=== PATIENT | male | born 1940 | race Caucasian/White ===

== ENCOUNTER 2021-09-18 16:28 | Emergency (ER) | payer MEDICARE, BC ==
[2021-09-18 16:46] VITALS: BP 129/81; PULSE 69; O2SAT 96
--- NOTE | 2021-09-18 16:49 | ERPHSYRPT ---
- History of Present Illness Time Seen by Provider: 09/18/21 16:46 Source: patient Exam Limitations: no limitations Physician History: Patient is 81-year-old male had a hand laceration on the right hand yesterday which for which he got approximately 10 stitches. Patient is on blood thinners for today his hand got more bruised so he came to the emergency room to get checked out. His wound was checked and it appears to be intact no other problems noted except for some bruise around his hand patient denies any other symptoms. Timing/Duration: today Associated Symptoms: denies symptoms - Review of Systems Constitutional: No Symptoms Eyes: No Symptoms Ears, Nose, & Throat: No Symptoms Respiratory: No Symptoms Cardiac: No Symptoms Abdominal/Gastrointestinal: No Symptoms Genitourinary Symptoms: No Symptoms Musculoskeletal: No Symptoms Skin: Other (bruise on hand) - Physical Exam General Appearance: no apparent distress Eye Exam: PERRL/EOMI Ears, Nose, Throat Exam: normal ENT inspection Neck Exam: normal inspection Back Exam: normal inspection Extremity Exam: other (bruise on right hand) Neurologic Exam: alert, oriented x 3 - Course Nursing assessment & vital signs reviewed: Yes - Progress Progress: unchanged Counseled pt/family regarding: diagnosis, need for follow-up - Departure Departure Disposition: Home Clinical Impression: Traumatic ecchymosis of right hand Qualifiers: Encounter type: initial encounter Qualified Code(s): S60.221A - Contusion of right hand, initial encounter Condition: Stable Critical Care Time: No Referrals: ADELINA CANNON [Primary Care Provider] - Follow up/PCP as directed Instructions: Wound Care (DC) Additional Instructions: Discharge/Care Plan BRIAN MACK was seen on 09/18/21 in the Emergency Room. The patient was counseled regarding Diagnosis,Lab results, Imaging studies, need for follow up and when to return to the Emergency Room. Prescriptions given: Discharge Note I have spoken with the patient and/or caregivers. I have explained the patient's condition, diagnosis and treatment plan based on the information available to me at this time. I have answered the patient's and/or caregiver's questions and addressed any concerns. The patient and/or caregivers have as good understanding of the patient's diagnosis, condition and treatment plan as can be expected at this point. The vital signs have been stable. The patient's condition is stable and appropriate for discharge from the emergency department. The patient will pursue further outpatient evaluation with the primary care physician or other designated or consulting physician as outlined in the discharge instructions. The patient and/or caregivers are agreeable to this plan of care and follow-up instructions have been explained in detail. The patient and/or caregivers have received these instruction. The patient/and or caregivers are aware that any significant change in condition or worsening of symptoms should prompt an immediate return to this or the closest emergency department or call 911.
== END 2021-09-18 16:52 | disposition home or self-care (01) ==
LOC: ED 16:28
DX: S60.221A Contusion of right hand, initial encounter (principal); Z79.01 Long term (current) use of anticoagulants
CPT/HCPCS: 99283